=== PATIENT | female | born 1995 | race Caucasian/White ===

== ENCOUNTER 2024-01-05 19:11 | Inpatient (IN) | payer OTHER, SELFPAY ==
[2024-01-05 19:23] VITALS: BP 132/70; PULSE 83; PULSE 87; RESP 18; TEMP 36.6; O2SAT 96
[2024-01-05 19:34] VITALS: BMI 43.9
--- NOTE | 2024-01-05 20:16 | PM.OBHPLI ---
OB - H&P: HPI Labor/Induction History of Present Illness Time Seen by Provider: 20:16 Date Seen: 01/05/24 Chief Complaint: The patient is a 28 year old 5 para 3 at 39.1 weeks gestation by 8 week ultrasound who presents for IOL at 39 weeks per recommendations from [facility] Chief complaint: IOL per perinatology : 5 Para: 3 Indications for induction: other (BMI>35, history of macrosomia) Narrative: Micheline Moe is a 28 year old female who presents for IOL at 39 weeks per recommendations from [facility] given history of macrosomia and BMI >35. She has felt well. Has a lot of pelvic pressure/pain and back pain at the end of . was otherwise uncomplicated. History of Present Dating criteria: based on 1st trimester US only (YADI by LMP was 12/23/2023, so changed with 8 week US) care: good care Ultrasounds: normal 1st trimester US and normal mid trimester US Abnormal ultrasound findings: 83 %ile on survey, growth ultrasound showed 81%ile Medical complications: psychiatric (Has had increased anxiety. On Fluoxetine and doing therapy) Labs Blood type: O (+) positive Rubella: immune RPR/VDLR: nonreactive GBS status: negative HBsAG: negative Review of Systems Status of ROS: Reports: 10 or more systems reviewed and unremarkable except as noted in History and below Meds Home Medications and Allergies Home Medications Medication Instructions Recorded Confirmed Type famotidine 20 mg tablet 20 mg PO BID 01/05/24 01/05/24 History fluoxetine 40 mg capsule 40 mg PO QAM 01/05/24 01/05/24 History Allergies Allergy/AdvReac Type Severity Reaction Status Date / Time No Known Drug Allergies Allergy Verified 01/05/24 19:50 OB - H&P: Exam Physical Exam: Vital signs: Temp Pulse Resp BP Pulse Ox 97.8 F 83 18 132/70 96 01/05/24 19:23 01/05/24 19:23 01/05/24 19:23 01/05/24 19:23 01/05/24 19:23 Constitutional: Constitutional: no acute distress Routine HEENT Exam: Head: Present atraumatic and normal inspection Routine Neck Exam: Neck: Present full ROM Detailed Neck Exam: Thyroids: Thyroid: Present normal Routine Respiratory Exam: Respiratory: Present CTA bilaterally Routine Cardiovascular Exam: Cardiovascular: RRR, S1 and S2 Routine Exam: Patient deferred: external exam Detailed Labor and Delivery Exam: Patient Gravid: Yes Cervical ripeness score: 3 Contraction frequency (min): 3 Tachysystole: No Contraction intensity: Mild Fetus (Single): Station: -2 Amniotic Membrane Status: intact Heart Rate Baseline: 130 Monitor Accelerations: Present Monitor Decelerations: None Long-Term Variability: Moderate (6-25) Routine Back/Spine/Pelvis Exam: Back/Spine: full ROM Routine Skin Exam: Present intact Routine Neurological Exam: Present alert and oriented X3 Routine Psychiatric Exam: Present normal affect OB - Problem Based A/P Additional Plan (1) Term : Status: Acute (2) Obesity affecting : Status: Acute (3) History of macrosomia in in prior , currently : Problem details: most recent growth scan was 81% Status: Acute Plan -admitted for IOL at 39 weeks per [facility] recommendations - [place] score 3-- will proceed with cervical ripening. Delivery/Labor/Induction Plan Plan: induction Induction method: per misoprostol protocol (will plan on pitocin/arom if needed. )
[2024-01-05] MEDS: miSOPROStoL 25 MCG/0.25 TABLET PO ×2 (20:36→23:05)
[2024-01-05 21:15] LABS: Basophils Absolute Auto 0.02 K/uL (0.00-0.30); Basophils Percent Auto 0.2 % (0.0-3.0); Eosinophils Absolute Auto 0.06 K/uL (0.00-0.50); Eosinophils Percent Auto 0.6 % (0.0-7.0); Hematocrit 35.8 % (33.0-51.0); Hemoglobin* 11.5 gm/dL (12.0-16.0); Immature Granulocytes Abs Auto 0.02 K/uL (0.00-0.30); Immature Granulocytes Pct Auto 0.2 %; Lymphocytes Percent Auto 15.2 % (20-44); Mean Corpuscular HGB Conc 32 gm/dL (32-36); Mean Corpuscular Hemoglobin 28 pg (26-34); Mean Corpuscular Volume 87 fL (80-100); Monocytes Percent Auto 5.1 % (0.0-11.0); Neutrophils Percent Auto 78.7 % (42.0-72.0); Platelet Count* 143 K/uL (140-440); RDW Coefficient of Variation % 13.7 % (11.5-15.5); Red Blood Count 4.11 m/uL (4.00-5.20); White Blood Count* 9.73 K/uL (4.50-11.00)
[2024-01-05 21:16] LABS: Slide Review Reflex No
[2024-01-05] MEDS: hydrOXYzine pamoate 25 MG CAPSULE 100 MG PO (23:05)
[2024-01-05] MEDS: MORPHINE 10 MG/ML inj IM (23:06)
[2024-01-06] VITALS (81 sets, daily range): BP systolic 106–150; BP diastolic 55–98; PULSE 70–98; RESP 16–18; TEMP 36.6–36.9; O2SAT 87–100
[2024-01-06] MEDS: miSOPROStoL 25 MCG/0.25 TABLET PO ×3 (01:24→05:51)
[2024-01-06] MEDS: SODIUM CHLORIDE 0.9 % (FLUSH) 10 ML SYRINGE IVF (05:52)
--- NOTE | 2024-01-06 08:21 | PM.OBPNL ---
Subjective Time Seen by Provider: 07:15 Date Seen: 01/06/24 Narrative: Slept some overnight, getting crampy Objective Exam: Resting comfortably Vital Signs: Last Vital Signs Temp 98.1 F 01/06/24 07:25 Pulse 77 01/06/24 07:26 Resp 16 01/06/24 05:48 BP 123/79 01/06/24 07:26 Pulse Ox 98 01/06/24 07:28 Pelvic Exam Dilation (cm): 3 Effacement (%): 90 Station: -2 Contractions Contraction Frequency: 1-3 Contraction pattern: Regular Contraction intensity: Mild Pitocin Rate (mU/min): 0 Assessment Assessment: induction ongoing Station: -2 Amniotic Membrane Status: AROM (clear fluid) Status: Category l Heart Rate Baseline: [address] Variability: Moderate (6-25) Monitor Accelerations: Present Monitor Decelerations: None Plan Plan: - AROM now of clear fluid. Cervical exam /-2. - internal monitoring placed - will start pitocin as needed.
[2024-01-06] MEDS: LACTATED RINGERS 1000 ML 1,000 ML 1125 ML IV (08:48)
[2024-01-06] MEDS: ROPIVACAINE 0.2% 100 ml 100 ML 12 MG EPIDURAL (09:09)
--- NOTE | 2024-01-06 09:22 | PM.ANBPRC ---
PFSH PFSH Social History What is your current living situation?: I presently have a place to live Problems where you live: no known problems In the past 12 months, utilities in danger of being shut off: no In past 12 months, lack of transportation kept you from medical appts, meetings, work, or getting things needed for daily living: no In the past 12 mos, have been you worried that your food would run out before you had money to buy more?: never true In the past 12 mos, the food you bought just didn't last and you didn't have money to buy more?: never true Smoking Status: Never smoker How often does anyone, including family, friends and others, physically hurt you: never How often does anyone, including family, friends and others, insult or talk down to you: sometimes How often does anyone, including family, friends and others, threaten you with harm: never How often does anyone, including family, friends and others, scream or curse at you: sometimes Meds Home Medications and Allergies Home Medications Medication Instructions Recorded Confirmed Type famotidine 20 mg tablet 20 mg PO BID 01/05/24 01/05/24 History fluoxetine 40 mg capsule 40 mg PO QAM 01/05/24 01/05/24 History Allergies Allergy/AdvReac Type Severity Reaction Status Date / Time No Known Drug Allergies Allergy Verified 01/05/24 19:50 Results Labs Labs: Laboratory Results - last 24 hr 01/05/24 20:54 WBC 9.73 RBC 4.11 Hgb 11.5 L Hct 35.8 MCV 87 MCH 28 MCHC 32 RDW Coeff of Dangelo 13.7 Plt Count 143 Neut % (Auto) 78.7 H Lymph % (Auto) 15.2 L [place] % (Auto) 5.1 Eos % (Auto) 0.6 Baso % (Auto) 0.2 Neut # (Auto) 7.70 H Lymph # (Auto) 1.50 [place] # (Auto) 0.50 Eos # (Auto) 0.06 Baso # (Auto) 0.02 Abs Immat Gran (auto) 0.02 Imm/Tot Granulo (auto) 0.2 Blood Type O Positive Antibody Screen NEGATIVE Vital Signs Vital Signs: Last Vital Signs Temp 98 F 01/06/24 09:13 Pulse 75 01/06/24 09:18 Resp 16 01/06/24 05:48 BP 124/67 01/06/24 09:18 Pulse Ox 99 01/06/24 09:18 Weight: 119.839 kg Height: 165.1 cm Anesthesia Procedures Epidural Insertion Patient Location: OB Start Time: :35 Stop Time: :35 Start Date: 01/06/24 Stop Date: 01/06/24 Reason for Block: procedure for pain Patient Position: sitting Performed By: Tanna Hodge Preanesthetic Checklist: IV checked, risks and benefits discussed, monitors and equipment checked, pre-op evaluation, timeout performed and anesthesia consent Prep: chlorhexidine gluconate Monitoring: blood pressure monitoring, continuous pulse oximetry and heart rate Approach: midline Vertebral Space: lumbar (1-5) Epidural Technique: KRISTINA saline Needle Type: Tuohy needle Injection Technique: continuous catheter (continuous catheter) Needle gauge: 17 Needle Length (cm): 10 cm Needle Insertion Depth (cm): 10 Catheter Gauge: 19 Catheter Type: multi-orifice Catheter at skin depth (cm): 15 Test Dose Result: negative and lidocaine 1.5% with epinephrine 1 to 200,000
[2024-01-06] MEDS: LACTATED RINGERS 1000 ML 1,000 ML 125 ML IV (10:51)
[2024-01-06] MEDS: OXYTOCIN 30 unit/500 ML in NS 30 UNIT/500 ML BAG IVPB (10:59)
--- NOTE | 2024-01-06 13:07 | W.PM.OBVAGDE ---
OB Procedure Vag Delivery Mother Details Mother Details: The patient is a 28 year-old, 5, Para 3, admitted on 01/05/24 at 39.1 weeks gestation for IOL for BMI >40 and possible macrosomia. : 5 Para: 3 Weeks Gestation: 39.2 Admission Date: 01/05/24 Additional Details Amniotic Membrane Status: AROM (clear fluid) Amniotic Membrane Rupture Date: 01/06/24 Amniotic Membrane Rupture Time: 07:15 Amniotic Membrane Fluid Description: Clear Analgesia/Anesthesia Type: Epidural Waterbirth: No Pitcoin: Yes Intrapartal Events: Labor Induction Induction Method: per misoprostol protocol, per pitocin protocol and AROM Labor Onset: 10:20 Complete: 12:19 Pushin:26 Heart: heart tones during second stage were reassuring. Did have variable decels with contractions, changed with position changes. Delivery Details Delivery Date: 01/06/24 Delivery Time: 12:47 Route of delivery: Infant Gender: Female Infant Viability: Alive; Heart Rate Present Position at Delivery: OP Delivery Details: Patient was admitted for IOL for BMI >40, history of macrosomia per recommendations from [facility] at 39w1d. Cervix was not favorable. Given PO cyctotec x 5 overnight with good results. AROM done in morning of clear fluid. IUPC and scalp electrode for monitoring. Patient progressed well, needing small dose pitocin of 2 to augment labor. Received epidural for analgesia. Became complete at 1219. Pushed very effectively, delivering a baby in OP position over intact perineum via . Infant was placed on maternal abdomen. Cord was clamped and cut after a 30-60 second delay. Nose and mouth were bulb suctioned.? Infant weight pending. APGARS 8/9. 1 Minute Interval Total Score: 8 5 Minute Interval Total Score: 9 Additional Details Shoulder Dystocia: No Placenta Delivery Time: 12:53 Placental Delivery Description: Spontaneous Procedure Done: Global Blood Loss: 20 Laceration: None Blood Loss Measurement Type: QBL Bakri Used: No Sponge/Need Count Correct: No Cord Vessel Description: 3 Vessels Event Summary Status: Mother and were stable after delivery. Disposition: no change
[2024-01-06 13:41] LABS: Hematocrit 39.2 % (33.0-51.0); Hemoglobin* 12.5 gm/dL (12.0-16.0); Mean Corpuscular HGB Conc 32 gm/dL (32-36); Mean Corpuscular Hemoglobin 28 pg (26-34); Mean Corpuscular Volume 88 fL (80-100); Platelet Count* 164 K/uL (140-440); Red Blood Count 4.45 m/uL (4.00-5.20)
[2024-01-06 13:44] LABS: Slide Review Reflex No
--- NOTE | 2024-01-06 13:54 | PM.OBPNVD1 ---
OB - PN:Subj Subjective Time Seen by Provider: 13:54 Date Seen: 01/06/24 Patient comments OB post-: no complaints status: doing well Narrative: planning breast/bottle feeding OB - PN: Obj Exam Physical Exam: Vital signs: Temp Pulse Resp BP Pulse Ox 97.9 F 71 16 130/77 87 L 01/06/24 11:01 01/06/24 13:48 01/06/24 05:48 01/06/24 13:48 01/06/24 12:46 Constitutional: Constitutional: no acute distress Routine Respiratory Exam: Respiratory: Present CTA bilaterally Routine Cardiovascular Exam: Cardiovascular: Present RRR Routine Psychiatric Exam: Psychiatric: Present normal affect OB - PN: Obj Data Labs Labs: Laboratory Results - last 24 hr 01/05/24 01/06/24 20:54 13:35 WBC 9.73 12.60 H RBC 4.11 4.45 Hgb 11.5 L 12.5 Hct 35.8 39.2 MCV 87 88 MCH 28 28 MCHC 32 32 RDW Coeff of Dangelo 13.7 Plt Count 143 164 Neut % (Auto) 78.7 H Lymph % (Auto) 15.2 L [place] % (Auto) 5.1 Eos % (Auto) 0.6 Baso % (Auto) 0.2 Neut # (Auto) 7.70 H Lymph # (Auto) 1.50 [place] # (Auto) 0.50 Eos # (Auto) 0.06 Baso # (Auto) 0.02 Abs Immat Gran (auto) 0.02 Imm/Tot Granulo (auto) 0.2 Blood Type O Positive Antibody Screen NEGATIVE OB - PN: A/P Delivery Assessment and Plan (1) Obesity affecting : Status: Acute (2) Gestational hypertension: Problem details: had 3 elevated bp readings while pushing Status: Acute Assessment and Plan: - Preeclampsia labs now, no symptoms, continue to monitor symptoms and blood pressures (3) Vaginal delivery: Status: Acute Plan - continue routine cares Plan day: 0 Plan: routine care
[2024-01-06 13:57] LABS: Alanine Aminotransferase* 15 U/L (4-35); Creatinine* 0.4 mg/dL (0.5-1.5); Est. Creatinine Clearance* 188.42; Estimated Glomerular Filt Rate 138 ml/min
[2024-01-06 14:25] LABS: Aspartate Amino Transferase* 27 U/L (12-35)
[2024-01-06] MEDS: IBUPROFEN 600 MG TABLET PO (15:50)
[2024-01-06] MEDS: ACETAMINOPHEN 500 MG TABLET 1000 MG PO (17:51)
[2024-01-07 00:02] VITALS: BP 113/74; PULSE 74; RESP 16; TEMP 36.6; O2SAT 95
[2024-01-07 05:15] VITALS: BP 122/79; PULSE 70; RESP 16; TEMP 36.6; O2SAT 98
[2024-01-07 06:42] LABS: Hemoglobin* 11.3 gm/dL (12.0-16.0)
[2024-01-07 07:20] VITALS: BP 126/79; PULSE 71; RESP 18; TEMP 36.4; O2SAT 98
--- NOTE | 2024-01-07 11:33 | PM.OBDSVD1 ---
DS: Providers Provider Date Seen: 01/07/24 Date of admission: 01/05/24 19:11 Primary care physician: Bell Martins MD Admitting Clinician: Bell Martins MD Attending Physician on discharge: Bell Martins MD Exam Const: Vital Signs, click to edit/add: Vital Signs - 24 hr 01/06/24 11:39 01/06/24 11:44 01/06/24 11:49 Temperature Pulse Rate 73 73 Pulse Rate [Pulse Oximeter] Respiratory Rate Blood Pressure 107/59 L 106/55 L Blood Pressure [Ri ght Arm] Pulse Oximetry 98 98 [facility] 01/[facility] 11:54 01/06/24 11:59 01/06/24 12:04 Temperature Pulse Rate Pulse Rate [Pulse Oximeter] Respiratory Rate Blood Pressure Blood Pressure [Ri ght Arm] Pulse Oximetry 98 98 99 [facility] 01/06/24 12:06 01/06/24 12:08 01/06/24 12:09 Temperature Pulse Rate 92 85 Pulse Rate [Pulse Oximeter] Respiratory Rate Blood Pressure 150/83 H 128/74 Blood Pressure [Ri ght Arm] Pulse Oximetry 100 [facility] 01/06/24 12:14 01/06/24 12:19 01/06/24 12:24 Temperature Pulse Rate Pulse Rate [Pulse Oximeter] Respiratory Rate Blood Pressure Blood Pressure [Ri ght Arm] Pulse Oximetry 99 99 96 [facility] 01/06/24 12:27 01/06/24 12:29 01/06/24 12:33 Temperature Pulse Rate Pulse Rate [Pulse Oximeter] Respiratory Rate Blood Pressure Blood Pressure [Ri ght Arm] Pulse Oximetry 93 99 88 [facility] 01/06/24 12:34 01/06/24 12:35 01/06/24 12:39 Temperature Pulse Rate 80 72 Pulse Rate [Pulse Oximeter] Respiratory Rate Blood Pressure 131/98 H 134/75 Blood Pressure [Ri ght Arm] Pulse Oximetry 99 99 [facility] 01/06/24 12:39 01/06/24 12:44 01/06/24 12:46 Temperature Pulse Rate Pulse Rate [Pulse Oximeter] Respiratory Rate Blood Pressure Blood Pressure [Ri ght Arm] Pulse Oximetry 91 99 87 L [facility] 01/06/24 13:19 01/06/24 13:34 01/06/24 13:48 Temperature Pulse Rate 74 78 71 Pulse Rate [Pulse Oximeter] Respiratory Rate Blood Pressure 117/70 125/78 130/77 Blood Pressure [Ri ght Arm] Pulse Oximetry [facility] 01/06/24 14:04 01/06/24 14:19 01/06/24 14:30 Temperature 97.9 F Pulse Rate 71 76 Pulse Rate [Pulse Oximeter] Respiratory Rate 16 Blood Pressure 138/82 124/67 Blood Pressure [Ri ght Arm] Pulse Oximetry [facility] 01/06/24 14:34 01/06/24 14:45 01/06/24 14:48 Temperature 97.9 F Pulse Rate 72 76 Pulse Rate [Pulse Oximeter] Respiratory Rate 16 Blood Pressure 120/74 126/80 Blood Pressure [Ri ght Arm] Pulse Oximetry [facility] 01/06/24 15:03 01/06/24 17:37 01/06/24 19:45 Temperature 98.1 F 97.8 F Pulse Rate 78 Pulse Rate [Pulse Oximeter] 81 78 Respiratory Rate 16 18 Blood Pressure 120/70 Blood Pressure [Ri ght Arm] 119/78 113/68 Pulse Oximetry 97 96 Oxygen Delivery [facility] Room Air Room Air 01/07/24 00:02 01/07/24 05:15 01/07/24 07:20 Temperature 97.9 F 97.8 F 97.6 F Pulse Rate Pulse Rate [Pulse Oximeter] 74 70 71 Respiratory Rate 16 16 18 Blood Pressure Blood Pressure [Ri ght Arm] 113/74 122/79 126/79 Pulse Oximetry 95 98 98 Oxygen Delivery [facility] Room Air Room Air Room Air Documenting provider has reviewed patient's vital signs: yes Common normals: no apparent distress, oriented x3 and alert General appearance: cooperative and comfortable Resp: Common normals: normal respiratory effort and clear to auscultation bilaterally Auscultation: clear to auscultation bilaterally Cardio: Common normals: regular rate and regular rhythm; murmurs detected Rate: regular rate Rhythm: regular rhythm GI: Common normals: soft to palpation and non-tender Palpation: soft : Uterus: firm Neuro: Common normals: oriented x3 Sensorium/orientation: alert OB - DS: Summary Hospital Course Hospital Course: The patient is a 28 year old G 5 P 4 at 39w1d weeks gestation that was admitted to the Center on 01/05/24 for IOL 2/2 elevated BMI and hx macrosomia. She had an uncomplicated vaginal delivery on 01/06/24. She delivered a viable female infant. Noted to have velamentous cord insertion on placenta, which was sent to pathology. She is breast and bottle (formula) feeding. the patient has done well. Infant Gender: Female Status at Discharge Functional status at discharge: independent ambulation Time Spent with Patient Time attestation: Total time spent providing and/or coordinating discharge services: Time spent: Less than 30 minutes Discharge Plan Discharge Disposition: Home, Self-Care Date of Admission: 01/05/24 19:11 Primary Care Provider: Bell Martins Condition: Stable Anticipated Discharge Date/Time: 01/07/24 14:00 Discharge Medications: Continued fluoxetine 40 mg capsule 40 mg PO QAM famotidine 20 mg tablet 20 mg PO BID Discharge Orders: Discharge Order (Routine); Ordered 01/07/24 Ordered By: Shelbi Guillaume Patient Education: Vaginal Delivery (DC) Follow Up Appointments: Bell Martins MD [Primary Care Provider] - Forms: [employer] Info Instructions Discharge Comments: Follow up with OB provider for post- visit in 6 weeks or sooner if concerns.
[2024-01-07 13:04] VITALS: BP 130/85; PULSE 78; RESP 16; TEMP 36.4; O2SAT 95
[2024-01-08 12:45] LABS: Rapid Plasma Reagin (RPR) Non Reactive (Non Reactive)
== END 2024-01-07 14:30 | disposition home or self-care (01) | DRG 807 ==
PROVIDERS: Admitting Provider Family Medicine; PCP Family Medicine; Visit Provider Family Medicine
DX: O99.214 Obesity complicating childbirth (principal); Z37.0 Single live birth; Z3A.39 39 weeks gestation of pregnancy; O99.344 Other mental disorders complicating childbirth; F41.9 Anxiety disorder, unspecified; O43.123 Velamentous insertion of umbilical cord, third trimester; O13.4 Gestational [pregnancy-induced] hypertension without significant proteinuria, complicating childbirth
CPT/HCPCS: 01967; 36415; 59200; 82565; 84450; 84460; 85018; 85025; 85027; 86592; 86850; 86900; 86901; 88307; A9270; J2270; J2795; J7120

== ENCOUNTER 2025-03-08 19:49 | Outpatient (CLI) | payer OTHER, SELFPAY ==
[2025-03-08 22:59] LABS: Chlamydia DNA Amplified* NOT DETECTED (No Detected); GC DNA Amplified* NOT DETECTED (No Detected)
== END 2025-03-08 19:50 | disposition home or self-care (01) ==
LOC: NFLDUCREF 19:50
PROVIDERS: PCP Family Medicine
DX: N89.8 Other specified noninflammatory disorders of vagina (principal); Z11.3 Encounter for screening for infections with a predominantly sexual mode of transmission
CPT/HCPCS: 87491; 87591